=== PATIENT | female | born 1950 | race Two or more races ===

== ENCOUNTER 2021-06-07 06:57 | Day surgery (SDC) | payer OTHER ==
[~2021-06-07 06:57] MED LIST: LOTREL PO; OMEGA3 PO; OMEPRAZ PO; XELJANZ XR11 MG PO
== END 2021-06-08 00:20 | disposition home or self-care (01) ==
LOC: CIR.AMB 06:57
PROVIDERS: ATTEND Surgery
DX: D05.12 Intraductal carcinoma in situ of left breast (principal)